=== PATIENT | male | born 1985 | race Caucasian/White ===

== ENCOUNTER 2017-02-01 12:02 | Emergency (ER) | payer BC ==
--- NOTE | 2017-02-01 13:43 | RAD ---
HISTORY: Penetrating trauma, left index finger COMPARISONS: June 07, 2014 VIEWS: 3, Frontal, lateral, and oblique views of the second digit of the left hand FINDINGS: BONE DENSITY: Normal. BONES: There is no displaced fracture. JOINTS: There is no arthropathy. ALIGNMENT: There is no dislocation. SOFT TISSUES: There is soft tissue irregularity consistent with history of penetrating trauma OTHER FINDINGS: None. IMPRESSION: NO ACUTE OSSEOUS INJURY. IF SYMPTOMS PERSIST, RECOMMEND REPEAT IMAGING.
--- NOTE | 2017-02-01 14:55 | ED ---
Upper Extremity Pain - HPI Summary HPI Summary: 31 male presents to ED with complaints of a puncture wound from a nail through left index finger that occurred just [employer]. Patient states it was stuck in a 2 by 4 when moving it and slammed down into his finger. Patient removed nail from finger [employer] without complication. Bleeding is controlled. Admits to some numbness /tingling of left index finger. No other complaints. Believes his tetanus was UTD back in August 2016 however is not 100% sure. Patient denies any other injury. No PMHx. No medications. Did clean wound with cleansing solution [employer]. - History of Current Complaint Chief Complaint: EDExtremityLower Stated Complaint: LT INDEX FINGER LAC Time Seen by Provider: 02/01/17 13:00 Hx Obtained From: Patient Mechanism Of Injury: Penetrating Trauma Onset/Duration: Started Hours Ago, Traumatic Timing: Lasting Minutes Severity Initially: Moderate Severity Currently: Mild Pain Location: Finger - left index Character: Aching Aggravating Factor(s): Nothing Alleviating Factor(s): Nothing - removing nail Associated Signs & Symptoms: Positive: Negative Related History: Dominant Hand Right - Allergies/Home Medications Allergies/Adverse Reactions: Allergies Allergy/AdvReac Type Severity Reaction Status Date / Time No Known Allergies Allergy Verified 02/01/17 12:29 PMH/Surg Hx/FS Hx/Imm Hx Endocrine/Hematology History: Denies: Hx Anticoagulant Therapy, Hx Diabetes Cardiovascular History: Denies: Hx Hypertension Respiratory History: Denies: Hx Asthma - Surgical History Surgery Procedure, Year, and Place: n/a - Immunization History Date of Tetanus Vaccine: 01/2017 Immunizations Up to Date: Yes Infectious Disease History: No Infectious Disease History: Denies: Traveled Outside the [place] in Last 30 Days - Family History Known Family History: Positive: None - Social History Alcohol Use: Occasionally Substance Use Type: Reports: None Smoking Status (MU): Never Smoked Tobacco Review of Systems Constitutional: Negative Cardiovascular: Negative Respiratory: Negative Positive: Other - puncture wound from nail index finger Positive: Numbness - left index finger at wound site All Other Systems Reviewed And Are Negative: Yes Physical Exam Triage Information Reviewed: Yes Vital Signs On Initial Exam: Initial Vitals Temp Pulse Resp BP Pulse Ox 96.6 F 68 16 137/87 100 02/01/17 12:29 02/01/17 12:29 02/01/17 12:29 02/01/17 12:29 02/01/17 12:29 Vital Signs Reviewed: Yes Appearance: Positive: Well-Appearing, No Pain Distress, Well-Nourished Skin: Positive: Warm, Skin Color Reflects Adequate Perfusion, Dry, Tender, Cyanosis @, Pale, Erythema @ - at puncture wound site through distal left index phalanx, minimal to no bleeding. no FB evident on exam, patient removed entire hardware nail. decreased sensation over lateral distal index of left finger. Negative: Cold Head/Face: Positive: Normal Head/Face Inspection Eyes: Positive: Conjunctiva Clear ENT: Positive: Hearing grossly normal Neck: Positive: Supple, Nontender Respiratory/Lung Sounds: Positive: Clear to Auscultation, Breath Sounds Present. Negative: Rales, Rhonchi, Wheezes Cardiovascular: Positive: Normal, RRR, Pulses are Symmetrical in both Upper and Lower Extremities - 2+ radial b/l. Negative: Murmur, Rub Musculoskeletal: Positive: Normal, Strength/ROM Intact, Pain @ - tenderness of puncture site wound left distal index, Edema Left - mild index at puncture site. , Other - no crepitus step off or obvious sign of bony deformity. Negative: Limited @, Interruption @, Abnormal @ Neurological: Positive: Normal, Sensory/Motor Intact - grossly intact sensation , some decreased at distal tip of left index at puncture site, Alert, Oriented to Person Place, Time, Reflexes Intact, NV Bundle Intact Distally, Normal Gait Psychiatric: Positive: Affect/Mood Appropriate - May Coma Scale Coma Scale Total: 15 Diagnostics - Vital Signs Vital Signs Temp Pulse Resp BP Pulse Ox 02/01/17 12:29 96.6 F 68 16 137/87 100 - Laboratory Lab Statement: Any lab studies that have been ordered have been reviewed, and results considered in the medical decision making process. - Radiology left index Xray Interpretation: No Acute Changes - NO ACUTE OSSEOUS INJURY. IF SYMPTOMS PERSIST, RECOMMEND REPEAT IMAGING. Radiology Interpretation Completed By: Radiologist Course/Dx - Course Course Of Treatment: patient was not in any pain currently, deferred medication at this time. puncture wound was throughouly cleaned with hipacleanse, and irrigated with syringe. dressed appropriately. last tetanus was unable to be confirmed back in 08/2016 due to [facility] medical records taking longer to send records than patient wanted to wait, therefore updated today per patient preference. aware of worsening signs and symptoms to watch out for such as infection. will treat with prophylactic antibiotic, keflex. patient is not immunocomprised, no concern for osteomyleitis. not diabetic. triple antibiotic ointment, keep clean and dry. dress. follow up re-check PCP 3 days. - Diagnoses Differential Diagnosis/HQI/PQRI: Positive: Contusion, Fracture (Closed), Strain , Other - FB Provider Diagnoses: Puncture wound with foreign body of left index finger without damage to nail, sequela Discharge - Discharge Plan Condition: Stable Disposition: HOME Prescriptions: Cephalexin CAP* [Keflex CAP*] 500 mg PO BID #14 cap Patient Education Materials: Puncture Wound (ED), Soft Tissue Foreign Body (ED) Referrals: No Primary Care Phys,NOPCP [Primary Care Provider] - [facility] [place] [facility]ERR[facility] [Outside] Additional Instructions: Take prescribed prophylactic antibiotic as directed to prevent infection. Keep clean and dry. Dress and apply triple antibiotic ointment. If appears to become infected or worsening symptoms please seek medical attention promptly. Follow up with primary care provider for recheck in 5-7 days, sooner if needed.
[2017-02-01] MEDS ORDERED: Tetan/Diph/Pertus SYR(Tdap)* 0.5 ML SYR(BOOSTRIX) use SYR IM ONE (15:50)
[2017-02-01 15:58] VITALS: BP 125/77
== END 2017-02-01 16:04 | disposition home or self-care (01) ==
LOC: ED 12:02
DX: S61.231A Puncture wound without foreign body of left index finger without damage to nail, initial encounter (principal); W45.0XXA Nail entering through skin, initial encounter; Y93.9 Activity, unspecified; Y92.9 Unspecified place or not applicable; Y99.9 Unspecified external cause status
CPT/HCPCS: 73140; 90715; 99282